=== PATIENT | female | born 1955 | race Two or more races ===

== ENCOUNTER 2020-07-31 12:00 | Outpatient (CLI) | payer OTHER | END 2020-07-31 14:45 | disposition home or self-care (01) | LOC: NUCLEAR 12:00 | PROVIDERS: ATTEND Internal Medicine | DX: M81.0 Age-related osteoporosis without current pathological fracture (principal); E03.8 Other specified hypothyroidism; I10 Essential (primary) hypertension; Z01.810 Encounter for preprocedural cardiovascular examination; E78.89 Other lipoprotein metabolism disorders; E55.9 Vitamin D deficiency, unspecified; E11.51 Type 2 diabetes mellitus with diabetic peripheral angiopathy without gangrene; E11.9 Type 2 diabetes mellitus without complications; E66.8 Other obesity; G62.89 Other specified polyneuropathies; M89.8X0 Other specified disorders of bone, multiple sites; E11.42 Type 2 diabetes mellitus with diabetic polyneuropathy ==

== ENCOUNTER → 2020-07-31 | Outpatient (CLI) | payer OTHER ==
[~2020-07-31] MED LIST: HUMALOG100 U/ML; HYZAAR 100-121 UDTAB; XANAX1 MG; ZOCOR5 MG; ZOLOFT25 MG
== END | disposition home or self-care (01) ==
LOC: MAMO-SONO 10:45
PROVIDERS: ATTEND Internal Medicine
DX: N60.02 Solitary cyst of left breast (principal); N60.01 Solitary cyst of right breast; Z12.31 Encounter for screening mammogram for malignant neoplasm of breast; N64.59 Other signs and symptoms in breast; I10 Essential (primary) hypertension; M54.5 Low back pain; Z01.810 Encounter for preprocedural cardiovascular examination; E03.8 Other specified hypothyroidism; E78.89 Other lipoprotein metabolism disorders; E55.9 Vitamin D deficiency, unspecified; E11.51 Type 2 diabetes mellitus with diabetic peripheral angiopathy without gangrene; E66.8 Other obesity; G62.89 Other specified polyneuropathies; E11.42 Type 2 diabetes mellitus with diabetic polyneuropathy

== ENCOUNTER 2021-02-19 05:32 | Day surgery (SDC) | payer OTHER | END 2021-02-19 11:45 | disposition home or self-care (01) | LOC: CIR.AMB 05:32 | PROVIDERS: ATTEND Surgery Surgery of the Hand | DX: D16.11 Benign neoplasm of short bones of right upper limb (principal); Z20.822 Contact with and (suspected) exposure to COVID-19 ==

== ENCOUNTER 2021-04-09 09:46 | Inpatient (IN) | payer OTHER ==
[~2021-04-09] VITALS: Ht 160 cm; Wt 70.3 kg
[2021-04-09] MEDS ORDERED: CYMBALTA20 MG PO (12:23)
[2021-04-10] MEDS ORDERED: MONTELUKAST SOD10 MG (15:49)
[2021-04-10] MEDS ORDERED: LOSARTAN-HCTZ1 EAC2 (15:49)
[2021-04-10] MEDS ORDERED: SEMGLEE100 UNIT/1 (15:49)
[2021-04-10] MEDS ORDERED: OMEGA-3 ACID ETH1 GM (15:49)
[2021-04-10] MEDS ORDERED: VITAMIN D31250 MCG (15:50)
[2021-04-10] MEDS ORDERED: BACLOFEN10 MG (15:50)
[2021-04-10] MEDS ORDERED: MELOXICAM15 MG (15:50)
[2021-04-10] MEDS ORDERED: MECLIZINE HCL25 MG (15:50)
[2021-04-10] MEDS ORDERED: CLOPIDOGREL BIS75 MG (15:50)
[2021-04-10] MEDS ORDERED: ST. JOSEPH ASPI81 M2 (15:50)
[2021-04-12] MEDS ORDERED: CLOPIDOGREL BIS75 MG PO (09:02)
[2021-04-12] MEDS ORDERED: HUMALOG KW200 UNIT/1 SUBCUTANEO (09:03)
== END 2021-04-12 13:40 | disposition home or self-care (01) | DRG 640 ==
LOC: ER 09:46 → MEDI 13:42 → SEC-K 13:42 → MEDI 18:06
PROVIDERS: ADMIT Internal Medicine; ATTEND Internal Medicine
PROC: 4A12X4Z Monitoring of Cardiac Electrical Activity, External Approach (ICD-10-PCS; principal; 2021-04-09)
DX: E86.0 Dehydration (principal); E11.10 Type 2 diabetes mellitus with ketoacidosis without coma; Z79.4 Long term (current) use of insulin; E87.8 Other disorders of electrolyte and fluid balance, not elsewhere classified; E11.65 Type 2 diabetes mellitus with hyperglycemia; Z20.822 Contact with and (suspected) exposure to COVID-19; K21.9 Gastro-esophageal reflux disease without esophagitis

== ENCOUNTER 2021-04-15 20:47 | Emergency (ER) | payer OTHER ==
[~2021-04-15] VITALS: Ht 162.6 cm; Wt 68.0 kg
[~2021-04-15 20:47] MED LIST changes: +BACLOFEN10 MG; +CLOPIDOGREL BIS75 MG; +CLOPIDOGREL BIS75 MG PO; +CYMBALTA20 MG PO; +HUMALOG KW200 UNIT/1 SUBCUTANEO; +LOSARTAN-HCTZ1 EAC2; +MECLIZINE HCL25 MG; +MELOXICAM15 MG; +MONTELUKAST SOD10 MG; +OMEGA-3 ACID ETH1 GM; +SEMGLEE100 UNIT/1; +ST. JOSEPH ASPI81 M2; +VITAMIN D31250 MCG
[2021-04-16] MEDS ORDERED: ULTRAM50 MG PO (14:57)
[2021-04-16] MEDS ORDERED: PEPCID AC20 MG PO (14:57)
[2021-04-16] MEDS ORDERED: LEVSIN/SL0.125 MG PO (14:57)
[2021-04-16] MEDS ORDERED: FLAGYL500MG PO (14:57)
[2021-04-16] MEDS ORDERED: CARAFATE1 GM PO (14:57)
[2021-04-16] MEDS ORDERED: CIPRO500 MG PO (14:57)
[2021-04-16] MEDS ORDERED: INTESTINEX680 M1 PO (14:57)
== END 2021-04-16 21:23 ==
LOC: ER 20:47
DX: K29.70 Gastritis, unspecified, without bleeding (principal); K52.89 Other specified noninfective gastroenteritis and colitis; Z20.822 Contact with and (suspected) exposure to COVID-19; D16.11 Benign neoplasm of short bones of right upper limb; E86.0 Dehydration; E11.65 Type 2 diabetes mellitus with hyperglycemia; E11.10 Type 2 diabetes mellitus with ketoacidosis without coma; E87.6 Hypokalemia; K57.20 Diverticulitis of large intestine with perforation and abscess without bleeding

== ENCOUNTER 2021-11-07 07:20 | Outpatient (CLI) | payer OTHER ==
[~2021-11-07 07:20] MED LIST changes: +CARAFATE1 GM PO; +CIPRO500 MG PO; +FLAGYL500MG PO; +INTESTINEX680 M1 PO; +LEVSIN/SL0.125 MG PO; +PEPCID AC20 MG PO; +ULTRAM50 MG PO
== END 2021-11-07 07:23 | disposition home or self-care (01) ==
LOC: MRI 07:20
PROVIDERS: ATTEND Psychiatry & Neurology Clinical Neurophysiology
DX: N60.12 Diffuse cystic mastopathy of left breast (principal); G31.84 Mild cognitive impairment of uncertain or unknown etiology; G10 Huntington's disease
CPT/HCPCS: 70551

== ENCOUNTER 2021-12-23 07:55 | Outpatient (CLI) | payer OTHER | END 2021-12-23 07:59 | disposition home or self-care (01) | LOC: NUCLEAR 07:55 | PROVIDERS: ATTEND Psychiatry & Neurology Clinical Neurophysiology | DX: I48.91 Unspecified atrial fibrillation (principal); Z79.02 Long term (current) use of antithrombotics/antiplatelets; Z79.82 Long term (current) use of aspirin; Z86.73 Personal history of transient ischemic attack (TIA), and cerebral infarction without residual deficits ==

== ENCOUNTER 2023-10-25 07:35 | Outpatient (CLI) | payer OTHER | END 2023-10-25 07:41 | disposition home or self-care (01) | LOC: RX STUDY 07:35 | PROVIDERS: ATTEND Internal Medicine | DX: R13.11 Dysphagia, oral phase (principal); R13.12 Dysphagia, oropharyngeal phase; I11.9 Hypertensive heart disease without heart failure; E78.2 Mixed hyperlipidemia; E11.69 Type 2 diabetes mellitus with other specified complication; R00.2 Palpitations ==